=== PATIENT | female | born 1980 | race Two or more races ===

== ENCOUNTER 2024-08-14 06:22 | Inpatient (IN) | payer MEDICAID ==
[~2024-08-14] VITALS: Ht 162.6 cm; Wt 80.5 kg
[~2024-08-14 06:22] MED LIST: ALPR2TAB6 PO; OME20GT GT; ONDA-155 PO
[2024-08-14] MEDS: ROPIVACAINE 0.5% (5MG/ML) 20ML AMPULE IJ ONE (07:09)
[2024-08-14] MEDS ORDERED: MIDAZOLAM HCL 2MG/2ML 2ml VIAL (1mg/ml) ONE (07:14)
[2024-08-14] MEDS ORDERED: ONDANSETRON HCL 4 MG/2 ML VIAL ONE (07:15)
[2024-08-14] MEDS ORDERED: DexAMETHasone SOD PHOS 10MG/1ML VIAL INJ ONE (07:15)
[2024-08-14] MEDS ORDERED: KETOROLAC TROMETH 30 MG/ML 1ML VIAL ONE (07:15)
[2024-08-14] MEDS ORDERED: METOCLOPRAMIDE HCL 5MG/ml INJ 2ml VIAL ONE (07:15)
[2024-08-14] MEDS: PROPOFOL 100 ML IV ONE (07:18)
[2024-08-14] MEDS: ceFAZolin 2 GM/D5W50ml 50 ML IV ONE (07:20)
[2024-08-14] MEDS ORDERED: PHENYLEPHRINE HCL 10 MG/ML VL ONE (07:21)
--- NOTE | 2024-08-14 07:25 | DVHOP2 ---
Operative Report - 2 Report Details Date: 08/14/24 Preop Diagnosis: Right femur pathologic lesion, polystotic fibrous dysplasia Postop Diagnosis: Right femur pathologic lesion, polystotic fibrous dysplasia Surgeon: Myron Will MD Auto Clutch Rebuilder: Malik SOTO Anesthesiologist: SONIA Anesthesia: General Implant: AOS ES nail Lag screw cerament Consent: The patient was informed of the risks and benefits of the procedure. These include but are not limited to complications of anesthesia, postoperative infection, incomplete relief of symptoms, recurrence of symptoms, damage to blood vessels, nerves and tendons, deep venous thrombosis, pulmonary embolism and possible need for repeat surgery in the future. Estimated Blood Loss: 50 cc Name of Procedure Performed Open reduction internal fixation of right pathologic lesion, currettage of pathologic lesion, intarop fluoro Procedure Details Procedure Details: FINDINGS: poly dsyplasia with multiple lesions with in femur DESCRIPTION OF PROCEDURE: In the preoperative holding area, the consent was reviewed and the appropriate extremity was verified by the patient and marked with my initials. The patient was then transferred to the operating theatre. Patient was placed on a fracture table. Appropriate anesthetia was induced. All bony prominences were well padded. A time out was performed verifying the side and site of surgery according to standard protocol. Preoperative antibiotics were given. The extremity was then prepped and draped in the usual sterile fashion. Using c-arm, the fracture was reduced using the fracture table and a combination of maneuvers including traction, internal rotation, and flexion. An incision was made over the greater trochanter confirming correct position with c-arm. A guide wire was drilled into the tip of the greater trochanter, centered A to P. We used the starting reamer to gain entry to the femoral canal. Guide wire was placed down canal. Aggressive curettage done at femur with reamers and extractor system. A guidewire nail was then placed. We reamed to a 12.5 and placed a size 11 nail. A guide pin was then drilled in the center of the femoral head confirmed using fluoroscopy. We measured the screw lengths. Using a cannulated drill, we drilled the lateral cortex. The screws were then introduced. Once positioned, we once again confirmed that the screws were with the femoral head. Cerament injected into fracture site Final xrays were taken showing the hardware in perfect position. The wound was copiously irrigated. No fractures were seen on the rest of the femur. The fascia was closed with #1 Vicryl, the skin closed #2-0 Vicryl, and bel. A dry sterile dressing was placed on the patient. The patient was transferred to the recovery room in stable condition. Specimen: Right femur bone Condition Good Disposition Still a Patient MYRON WILL MD Aug 14, 2024 07:25
[2024-08-14] MEDS ORDERED: EPINEPHrine HCL 1 MG/1 ML AMP ONE (07:55)
[2024-08-14] MEDS: BUPIVACAINE 0.25% INJ 50ML VIAL ONE (08:12)
[2024-08-14 08:46] VITALS: PULSE 63; RESP 19; O2SAT 100
[2024-08-14] MEDS ORDERED: HYDROmorphone HCL 2 MG/ML VL/or syr IV PRN ×3 (09:00)
[2024-08-14] MEDS ORDERED: HYDROcodone-ACET 10/325MG TAB PO PRN (09:15)
[2024-08-14] MEDS ORDERED: NITROGLYCERIN 0.4 MG SL TAB SL PRN (09:15)
[2024-08-14] MEDS: LACTATED RINGER'S 1,000 ML IV SCH (09:15)
[2024-08-14] MEDS ORDERED: MORPHINE SULFATE INJ 2 MG/ml SYRG IV PRN (09:15)
[2024-08-14] MEDS ORDERED: ceFAZolin 1GM/50ML 50 ML IV SCH (09:15)
[2024-08-14] MEDS ORDERED: ENOXAPARIN SOD 40 MG/0.4 ML SYRINGE SC SCH (10:00)
--- NOTE | 2024-08-14 11:05 | DVH ---
EXAM: XY PELVIS AP CLINICAL INDICATION: post op hip nailing TECHNIQUE: XY PELVIS AP Comparison: None FINDINGS/IMPRESSION: There is no evidence of acute fracture or dislocation. Intramedullary katheryn in the right The alignment is anatomical. There is no radiopaque foreign body.
--- NOTE | 2024-08-14 11:59 | DVHINCON2 ---
Date Seen: Aug 14, [address] ANDERSON Allergies: Coded Allergies: Codeine (Unverified Adverse Reaction, Unknown, rash, itching, anxiety , 08/10/24) Home Meds Reported Medications Alprazolam (Alprazolam) 2 Mg Tab, 2 MG PO DAILY, TAB 08/10/24 Ondansetron HCl (Ondansetron) 4 Mg Tab, 4 MG PO PRN, TAB 08/10/24 Omeprazole (Prilosec Susp (For Gt)) 20 Mg Ss, 40 MG GT DAILY, ML 08/10/24 Current Medications Current Medications Medications (Trade) Dose Ordered Sig/Barbie Route PRN Reason Start Time Stop Time Status Last Admin Hydromorphone HCl (Dilaudid Injection) 0.5 mg Q2HP PRN IV SEVERE PAIN (7-10 PAIN SCALE) 08/14/24 09:00 08/14/24 09:01 UNV Hydromorphone HCl (Dilaudid Injection) 0.5 mg Q10M PRN IV SEVERE PAIN (7-10 PAIN SCALE) 08/14/24 09:00 08/14/24 09:41 UNV Hydromorphone HCl (Dilaudid Injection) 0.25 mg Q10M PRN IV MODERATE PAIN (4-6 PAIN SCALE) 08/14/24 09:00 08/14/24 09:31 UNV Nitroglycerin (Ntrostat Sublingual) 0.4 mg Q5MINP PRN SL FOR CHEST PAIN 08/14/24 09:15 Morphine Sulfate 2 mg Q30M PRN IV FOR CHEST PAIN 08/14/24 09:15 UNV Lactated Ringer's 1,000 ml @ 100 mls/hr Q10H IV 08/14/24 09:15 Cefazolin Sodium 50 ml @ 50 mls/hr Q6H IV 08/14/24 09:15 08/14/24 11:16 DC Hydromorphone HCl (Dilaudid Injection) 1 mg Q2HP PRN IV SEVERE PAIN (7-10 PAIN SCALE) 08/14/24 09:15 UNV Ondansetron HCl (Zofran) 4 mg Q6HP PRN IV NAUSEA / VOMITING 08/14/24 09:15 Docusate Sodium (Colace Capsule) 100 mg Q12HR PO 08/14/24 10:00 Enoxaparin Sodium (Lovenox) 40 mg DAILY SC 08/14/24 10:00 08/14/24 11:16 DC Acetaminophen/ Hydrocodone Bitart ([place] 10/325MG Tab) 1 tab Q4HP PRN PO MODERATE PAIN (4-6 PAIN SCALE) 08/14/24 09:15 UNV Ketorolac Tromethamine (Toradol Injection) 15 mg Q6HR IV 08/14/24 12:00 08/19/24 11:59 Cefazolin Sodium 50 ml @ 50 mls/hr Q6H IV 08/14/24 13:00 08/15/24 01:59 Enoxaparin Sodium (Lovenox) 30 mg DAILY SC 08/15/24 10:00 Vital Signs Vital Signs Date Time Temp Pulse Resp B/P (MAP) Pulse Ox O2 Delivery O2 Flow Rate FiO2 08/14/24 10:30 67 15 107/70 (82) 100 08/14/24 08:46 Mask 5.0 100 08/14/24 08:46 97.7 97.7 Assessment SEE DICTATED NOTE Plan discussed with: Patient Date of Service: Aug 14, 2024 Billing Provider: JANICE PLASCENCIA MD Common Visit Codes: [id number] INP/OBS CARE (HIGH) JANICE PLASCENCIA MD Aug 14, 2024 11:59
[2024-08-14] MEDS: KETOROLAC TROMETH 30 MG/ML 1ML VIAL IV SCH (12:08)
[2024-08-14] MEDS: ONDANSETRON HCL 4 MG/2 ML VIAL IV PRN (12:09)
[2024-08-14 12:54] VITALS: BP 110/68; PULSE 93; RESP 18; TEMP 97.5; O2SAT 98
[2024-08-14] MEDS: DOCUSATE SOD 100 MG CAP PO SCH (14:00)
[2024-08-14] MEDS: ceFAZolin 1GM/50ML 50 ML IV SCH (14:00)
[2024-08-14 15:23] VITALS: BP 116/69; PULSE 68; RESP 18; TEMP 98.6; O2SAT 98
[2024-08-14] MEDS ORDERED: ACETAMINOPHEN 325 MG TAB PO PRN (16:30)
[2024-08-14 17:00] VITALS: BP 99/61; PULSE 84; RESP 16; TEMP 98.2; O2SAT 99
[2024-08-14] MEDS: ACETAMINOPHEN 325 MG TAB PO PRN (17:06)
[2024-08-14] MEDS: ALPRAZolam 0.5 MG TAB PO PRN (17:07)
--- NOTE | 2024-08-14 17:58 | DVHINCON2 ---
INTERNAL MEDICINE CONSULT HISTORY OF PRESENT ILLNESS: The patient is a 43-year-old lady who is admitted after she underwent surgery on the right hip for polyostotic fibrous dysplasia. The patient at this time denies any significant pain. No chest pain, no shortness of breath, no nausea or vomiting. REVIEW OF SYSTEMS: Otherwise currently negative. PAST MEDICAL HISTORY: Significant for pain in the right pelvic area. MEDICATIONS: She takes no medications on a regular basis. ALLERGIES: No known drug allergies. SOCIAL HISTORY: Denies smoking or alcohol. Lives at home with her and children. FAMILY HISTORY: Negative. PHYSICAL EXAMINATION: GENERAL: The patient is awake, alert. VITAL SIGNS: Temperature of 97.7, pulse 70 per minute, blood pressure 101/52. SHEENT: Unremarkable. NECK: There is no JVD. No pedal edema. LUNGS: Equal bilaterally. No added sounds. CARDIOVASCULAR SYSTEM: S1 and S2 is regular. No murmurs. ABDOMEN: Soft. There is no organomegaly. NEUROLOGIC: Nonfocal. MUSCULOSKELETAL: There is a dressing at this area of the right hip surgery. ASSESSMENT AND PLAN: Status post right hip surgery for polyostotic fibrous dysplasia. The patient will be placed on pain medications along with DVT prophylaxis and will receive physical therapy. MD BAKARI Guillaume/SRINATH TID: [id number] RECEIPT: [id number]
--- NOTE | 2024-08-14 19:35 | DVH ---
EXAM: XY R HIP COMPLETE XRAY, XY C ARM FLUOROSCOPY UP TO 60MIN HISTORY: RT HIP ORIF TECHNIQUE: Intraoperative radiographs of the right hip were obtained. FLUOROSCOPY TIME: 107.4 seconds FLUOROSCOPY IMAGES: 14 TOTAL DOSE: 8.9 mGy COMPARISON: None FINDINGS/IMPRESSION: Refer to intraoperative report for further evaluation.
[2024-08-14 21:00] VITALS: BP 113/68; PULSE 100; RESP 20; TEMP 97.5; O2SAT 96
[2024-08-15 01:00] VITALS: BP 97/61; PULSE 86; RESP 20; TEMP 98.3; O2SAT 98
[2024-08-15 05:00] VITALS: BP 116/54; PULSE 76; RESP 20; TEMP 98.2; O2SAT 100
[2024-08-15 06:19] LABS: Basophils # (auto) 0 10 ^3/uL (0-0.2); Basophils % (auto) 0.1 % (0.0-2.0); Eosinophils # (auto) 0 10 ^3/uL (0-0.8); Lymphocytes # (auto) 1.4 10 ^3/uL (0.4-5.4); Monocytes # (auto) 0.8 10 ^3/uL (0-1.3); Neutrophils # (auto) 7.3 10 ^3/uL (1.6-8.6)
[2024-08-15 06:21] LABS: Hematocrit 23.8 % (36.0-46.0); Lymphocytes % (auto) 14.4 % (10.0-50.0); Mean Corpuscular Hemoglobin 23.8 pg (28.0-32.0); Mean Corpuscular Hgb Conc. 33.6 g/dL (32.0-36.0); Mean Corpuscular Volume 70.9 fL (80.0-100.0); Monocytes % (auto) 8.3 % (0.0-12.0); Neutrophils % (auto) 77.2 % (37.0-80.0); Platelet Count (auto) 309 10^3/uL (140-450); Red Blood Cells 3.36 10^6/uL (4.0-5.20); Red Cell Distribution Width 17.5 % (11.8-14.3); White Blood Cell 9.4 10^3/uL (4.4-10.8)
[2024-08-15 06:46] LABS: Alanine Aminotransferase 11 U/L (7-40); Anion Gap 10 (5-15); BUN/Creatinine Ratio 23.7 (10.0-20.0); Blood Urea Nitrogen 14 mg/dL (9-23); Calcium 8.8 mg/dL (8.7-10.4); Carbon Dioxide 22 mmol/L (20-31); Glucose 90 mg/dL (74-106); Potassium 3.7 mmol/L (3.5-5.1); Sodium 141 mmol/L (136-145)
[2024-08-15 06:47] LABS: Albumin 3.5 g/dL (3.2-4.8); Bilirubin, Total 0.4 mg/dL (0.2-1.0)
[2024-08-15 06:53] LABS: Alkaline Phosphatase 43 U/L (46-116); Aspartate Aminotransferase 12 U/L (13-40); Chloride 109 mmol/L (98-107); Total Protein 5.5 g/dL (5.7-8.2)
--- NOTE | 2024-08-15 07:41 | DVHPN2 ---
Progress Note Date Seen: Aug 15, 2024 Has the PT tested + for MRSA If YES, has PT been informed?: No Medical Necessity Reason Pt with a Central, PICC or Fol: No Subjective Patient reports: No new complaints (Patient reports pain is minimal this morning and reports she almost left AMA at 2 am this morning, reports nurses have been very helpful but she would like to go home) Objective vital signs Vital Sign Date Time Temp Pulse Resp B/P (MAP) Pulse Ox O2 Delivery O2 Flow Rate FiO2 08/15/24 05:00 98.2 76 20 116/54 (74) 100 98.2 08/14/24 20:00 Room Air* 0 21 Total Intake and Output 08/14/24 08/14/24 08/15/24 15:00 23:00 07:00 Intake Total 50 ml 500 ml 1050 ml Balance 50 ml 500 ml 1050 ml medications Current Medications Medications Dose Ordered Sig/Barbie Route Start Time Stop Time Status Last Admin Dose Admin Nitroglycerin 0.4 mg Q5MINP PRN SL 08/14/24 09:15 Morphine Sulfate 2 mg Q30M PRN IV 08/14/24 09:15 Lactated Ringer's 1,000 ml @ 100 mls/hr Q10H IV 08/14/24 09:15 Hydromorphone HCl 1 mg Q2HP PRN IV 08/14/24 09:15 Ondansetron HCl 4 mg Q6HP PRN IV 08/14/24 09:15 08/15/24 00:13 4 MG Docusate Sodium 100 mg Q12HR PO 08/14/24 10:00 08/14/24 14:00 100 MG Acetaminophen/ Hydrocodone Bitart 1 tab Q4HP PRN PO 08/14/24 09:15 Ketorolac Tromethamine 15 mg Q6HR IV 08/14/24 12:00 08/19/24 11:59 08/15/24 06:32 15 MG Enoxaparin Sodium 30 mg DAILY SC 08/15/24 10:00 Alprazolam 2 mg [id number] PRN PO 08/14/24 16:30 08/14/24 17:07 2 MG Acetaminophen 650 mg Q6HP PRN PO 08/14/24 16:45 08/14/24 17:06 650 MG Examination: GENERAL:Normal, MSK:Abnormal laboratory and microbiology Laboratory Tests 08/15/24 05:38 Test 08/15/24 05:38 Range/Units Serum Glucose 90 74-106 mg/dL Problem List/Assessment/Plan Problem List/Assessment/Plan 43 year old female who is s/p ORIF right hip POD 1 1. Pain control 2. DVT PPX 3. Physical therapy-goal is to have patient ambulate with therapy once prior to discharge home 4. Patient voiced feelings of anxiety this morning regarding staying in the hospital, wishes to go home as soon as possible 5. Patient has pain medication at home as prescribed prior to surgery 6. clear for discharge home today with home health and in home physical therapy with the following discharge recommendations: POSTOPERATIVE HIP INSTRUCTIONS Activity: 1. You can bear as much weight as you tolerate on your hip unless specifically instructed otherwise. You may use the walking aid which you were discharged with and switch to a cane whenever you feel comfortable doing so. You should use an assistive device until you can walk comfortably without it. Keep in mind that every patient moves at their own speed of recovery so take your time. 2. A physical therapist will visit you at home. 3. Although guarantees against a dislocation do not exist, the hip was noted to be sufficiently stable in surgery. Below are motions that you should dischargenot do for 4-6 weeks, depending on the surgical approach used. If there are questions, please call the office. a. Bend forward past 90 degrees b. Sit on a regular low chair, couch, car seat etc... c. Cross your legs d. Use a regular low toilet seat. e. Sleep on your stomach or on either side. 3. High impact activity such as jumping, aerobics, tennis, and skiing are not permitted during the first 3 months after surgery. These activities can contribute to accelerated wear and should be done with caution after this time. Discuss this with your surgeon if you have questions. 4. Although a bath or whirlpool is NOT permitted during the first 2-3 weeks, you may shower as soon as you get home from the hospital provided you are able to keep your bandage clean and dry and there is no wound drainage. If you are unable to place a secured covering over your bandage bed bath/sponge bath may likely be the more appropriate option. 5. Swimming is not permitted until the wound is healed, which typically occurs approximately 3-4 weeks after surgery. Wound Management: If the wound is draining please change the gauze pad on the wound until it stops. If drainage persists past 10 days please notify our office. If there is a sticky gel dressing over your wound, you may leave this in place for as long as it is clean and dry. If it becomes loose or causes skin irritation, it is OK to remove it and place clean gauze over your wound. 1. You might notice some bruising around the surgical site, this is normal. 2. Check your temperature on a daily basis. Please note that a low-grade temp below 101 is not uncommon after surgery especially during the first 3 days. Notify the office if your temperature spikes above 101.5 after the 3 rd post-operative date. 3. Many patients experience significant swelling in the thigh, this may extend below the knee and sometimes to the ankle. Swelling increases during the first week and subsides during the following week. 4. Provided you have been on a blood thinner since surgery and have been up and about at least three times per day, the risk of a blood clot is low and this swelling is an expected part of recovery. It will largely or completely resolve by your first post-operative visit. 5. Feliz, if present, will be removed at 2 weeks during initial post-op visit. Medications: 1. You will be discharged with pain medication, Aspirin as a blood thinner and sometimes an anti-inflammatory medication such as Celebrex or Mobic might be prescribed. Please follow the instructions regarding these medicines as provided by your nurse at the hospital. 2. Narcotic pain medication has side effects, including constipation. Please ensure you continue to take stool softeners (Colace, Senna) while taking your pain medication to help protect against constipation. Getting up and moving around at least a few times per day helps with this also. 3. Lovenox 40 Sq x 12 days followed by one regular strength 325 mg coated aspirin daily for 4 weeks after surgery. Then, take one baby aspirin, 81 mg daily for 6 weeks more. A major, yet preventable, complication of Orthopaedic Surgery is a blood clot (DVT). It is important not to miss any doses of this important medication. 4. You should restart all of your prescription medications once discharged unless specifically instructed otherwise. 5. Herbal supplements may be restarted 2 weeks after surgery. Miscellaneous issues: 1. Driving is not permitted within the first 2 weeks. 2. Your first postoperative visit will take place 2weeks after discharge. Please call the office to arrange this appointment. 3. Antibiotic preventative treatment is required before dental or other invasive procedures. Please ask your surgeon about this at your first postoperative visit. Your hip replacement contains metal which may activate metal detectors. You may wish to carry a letter from your surgeon to communicate this to security personnel. If you experience chest pain, shortness of breath or severe painful calf swelling, go to the nearest emergency room to be evaluated. Please call our office once your situation is stabilized. Plan discussed with: Patient My Orders My Orders Orders - LIZ PLASENCIA NP Procedure Category Date Status Time Admit ADMIT 08/14/24 Transmitted 09:10 Hemoglobin & LAB 08/16/24 Verified Hematocrit 07:00 Hemoglobin & LAB 08/17/24 Verified Hematocrit 07:00 Change Dressing MARY 08/14/24 In Process Regular Diet DIET 08/14/24 Transmitted Lunch Vital Signs MARY 08/14/24 In Process 09:10 Diagnosis DIAGNOSIS 08/14/24 Transmitted 09:10 Call/Page MARY 08/14/24 In Process Hospitalist/Atten Fo 09:10 Incentive Spirometry ORDERS 08/14/24 Transmitted 09:10 Nitroglycerin PHA 08/14/24 In Process Sublingual (Ntrostat 09:15 Morphine Sulfate PHA 08/14/24 In Process Injection 09:15 Stat Ekg For Chest MARY 08/14/24 In Process Pain 09:10 Notify Of Changes [facility] 08/14/24 In Process From Base 09:10 Mill Stenciler For [facility] 08/14/24 In Process 24 Hours 09:10 Emergency Dysrhythmia [facility] 08/14/24 In Process Protocol 09:10 Rhythm Strips Once [facility] 08/14/24 In Process Every Shift 09:10 Oxygen By Nasal RT 08/14/24 Transmitted Cannula 09:10 Patient Condition COMORDER 08/14/24 Transmitted Stable 09:10 Vital Signs MARY 08/14/24 In Process 09:10 Lactated Ringer's PHA 08/14/24 In Process 09:15 Hydromorphone PHA 08/14/24 In Process Injection (Dilaudid 09:15 Ondansetron Hcl PHA 08/14/24 In Process (Zofran) 09:15 Docusate Sodium PHA 08/14/24 In Process Capsule (Colace 10:00 Pelvis Ap XY 08/14/24 Resulted 09:10 Incentive Spirometry ORDERS 08/14/24 Transmitted 09:10 Hydrocodone-Acet PHA 08/14/24 In Process 10/325mg Tab ([place] 09:15 Ketorolac Injection PHA 08/14/24 In Process (Toradol Injection) 12:00 * Hospitalist Consult CONS 08/14/24 Transmitted Date of Service: Aug 15, 2024 Billing Provider: ELIZABETH ANDERSON MD Common Visit Codes: NOT BILLABLE LIZ PLASENCIA NP Aug 15, 2024 07:41
[2024-08-15 08:00] VITALS: PULSE 68; RESP 18; O2SAT 98
[2024-08-15] MEDS: HYDROmorphone HCL 2 MG/ML VL/or syr IV PRN (08:26)
[2024-08-15 08:49] VITALS: BP 107/52; PULSE 78; RESP 17; TEMP 97.5; O2SAT 99
[2024-08-15 08:56] VITALS: BP 118/67; PULSE 68; RESP 18
[2024-08-15] MEDS: ENOXAPARIN SOD 30 MG/0.3 ML SYRINGE SC SCH (09:44)
--- NOTE | 2024-08-15 10:31 | DVHDS2 ---
Discharge Summary Date of Admission Aug 14, 2024 at 09:10 Date of Discharge: Aug 15, 2024 Labs/Diagnostic Data: Laboratory Results Test 08/15/24 05:38 White Blood Count 9.4 10^3/uL (4.4-10.8) Red Blood Count 3.36 10^6/uL (4.0-5.20) Hemoglobin 8.0 g/dL (12.2-16.2) Hematocrit 23.8 % (36.0-46.0) Mean Corpuscular Volume 70.9 fL (80.0-100.0) Mean Corpuscular Hemoglobin 23.8 pg (28.0-32.0) Mean Corpuscular Hemoglobin Concent 33.6 g/dL (32.0-36.0) Red Cell Distribution Width 17.5 % (11.8-14.3) Platelet Count 309 10^3/uL (140-450) Mean Platelet Volume 7.7 fL (6.9-10.8) Neutrophils (%) (Auto) 77.2 % (37.0-80.0) Lymphocytes (%) (Auto) 14.4 % (10.0-50.0) Monocytes (%) (Auto) 8.3 % (0.0-12.0) Eosinophils (%) (Auto) 0.0 % (0.0-7.0) Basophils (%) (Auto) 0.1 % (0.0-2.0) Neutrophils # (Auto) 7.3 10 ^3/uL (1.6-8.6) Lymphocytes # (Auto) 1.4 10 ^3/uL (0.4-5.4) Monocytes # (Auto) 0.8 10 ^3/uL (0-1.3) Eosinophils # (Auto) 0 10 ^3/uL (0-0.8) Basophils # (Auto) 0 10 ^3/uL (0-0.2) Nucleated Red Blood Cells 0.0 % Sodium Level 141 mmol/L (136-145) Potassium Level 3.7 mmol/L (3.5-5.1) Chloride Level 109 mmol/L (98-107) Carbon Dioxide Level 22 mmol/L (20-31) Anion Gap 10 (5-15) Blood Urea Nitrogen 14 mg/dL (9-23) Creatinine 0.59 mg/dL (0.550-1.02) Glomerular Filtration Rate Calc 113 mL/min (>90) BUN/Creatinine Ratio 23.7 (10.0-20.0) Serum Glucose 90 mg/dL (74-106) Calcium Level 8.8 mg/dL (8.7-10.4) Total Bilirubin 0.4 mg/dL (0.2-1.0) Aspartate Amino Transferase (AST) 12 U/L (13-40) Alanine Aminotransferase (ALT) 11 U/L (7-40) Alkaline Phosphatase 43 U/L (46-116) Total Protein 5.5 g/dL (5.7-8.2) Albumin 3.5 g/dL (3.2-4.8) Other Laboratory Tests 08/15/24 05:38 Brief Hx & Hospital Course: see dictated note Condition at Discharge: Good Final Diagnosis/Problems List Right hip surgery Discharge Disposition: Home Discharge Instruct/Medications Diet: Regular Activity: See Comment Activity comment: WBAT with walker Follow Up/Referral: Dr. Will in 2 weeks Medications: resume home meds Discharge Statement: "Patient was advised to return to the ER or call 911 if any headaches, dizziness, shortness of breath, chest pain, abdominal pain, bleeding, fevers, or worsening of medical condition. Patient was counseled about treatment plan, medications, possible side effects, patientverbalized understanding. All questions were answered to the best of my ability. This discharge took greater then 30 minutes in planning, reviewing documentation, counseling the patient, and discussing with other team members." ASSESSMENT ASSESSMENT Assessment Right hip surgery Date of Service: Aug 15, 2024 Billing Provider: JANICE PLASCENCIA MD Common Visit Codes: [id number] DISCH DAY >30min JANICE PLASCENCIA MD Aug 15, 2024 10:31
--- NOTE | 2024-08-15 10:40 | DVHDS ---
DATE OF DISCHARGE: 08/15/2024 HISTORY OF PRESENT ILLNESS: The patient is a 43-year-old lady who is admitted after she underwent surgery for right hip pain and polyostotic fibrous dysplasia. She has a previous history of anxiety. HOSPITAL COURSE: The patient did well post surgery. The patient's hemoglobin at time of discharge is 8.0. She has now been cleared for discharge by Orthopedics. She will be discharged home with medications as per Orthopedics and she will resume the rest of her home medications. She will follow up with her primary and Dr. Will. FINAL DIAGNOSES: * Anxiety. * Anemia. * Status post right hip surgery for polyostotic fibrous dysplasia. Time spent in discharge plan, review of plan with the patient and nursing was 37 minutes. MD BAKARI Guillaume/STEVE TID: [id number] RECEIPT: [id number]
[2024-08-15 10:41] VITALS: TEMP 36.4
== END 2024-08-15 11:10 | disposition home or self-care (01) | DRG 309 ==
LOC: SUR 06:22 → OVERFLOW 09:10 → EAST 12:54
PROVIDERS: ADMIT Internal Medicine; ATTEND Internal Medicine
PROC: 0QC Lower Bones, Extirpation (ICD-10-PCS; 2024-08-14)
PROC: 0QS604Z Reposition Right Upper Femur with Internal Fixation Device, Open Approach (ICD-10-PCS; principal; 2024-08-14 07:16)
DX: M25.851 Other specified joint disorders, right hip (principal); D64.9 Anemia, unspecified; M25.9 Joint disorder, unspecified; Q78.1 Polyostotic fibrous dysplasia; F41.9 Anxiety disorder, unspecified
CPT/HCPCS: 36415; 72170; 73502; 76000; 80053; 85025; 97163; C1713; C1769; G0378; J0171; J1100; J1885; J2250; J2405; J2704; J3490